=== PATIENT | female | born 1985 | race Caucasian/White ===

== ENCOUNTER 2020-10-12 00:11 | Inpatient (IN) | payer OTHER, SELFPAY ==
--- OUTSIDE RECORDS SUMMARY | 2020-10-12 00:14 | XMS REPORT | Continuity of Care Document ---
:1985 Author Organization [facility] t Address [address] [place] [address] Care Team Providers Name Role Phone Unavailable Unavailable Unavailable Problems This patient has no known problems. Allergies, Adverse Reactions, Alerts This patient has no known allergies or adverse reactions. Medications This patient has no known medications. Procedures This patient has no known procedures. Encounters Start End Encounter Admission Attending Care Care Encounter Source Date/Time Date/Time Type Type Clinicians Facility Department ID 2020-02-29 2020-02-29 Outpatient [facility] [id number] [facility] 2020-02-24 2020-02-24 Outpatient [facility] [id number] [facility] 2018-03-30 2018-03-30 [facility] [id number] [facility] 15:47[facility]00 15:47:00 [facility] 2018-03-29 2018-03-29 [facility] [id number] [facility] 13:30:00 13:30:00 [facility] Out[facility] Clinics Results This patient has no known results.
[2020-10-12 00:55] LABS: Urine Blood 2+ (Negative); Urine Glucose Negative (Negative); Urine Protein 2+ (Negative); Urine Specific Gravity 1.015 (1.005-1.030)
[2020-10-12 01:06] LABS: Urine Specific Gravity/Preg 1.015 (1.005-1.030)
[2020-10-12] MEDS ORDERED: IBUPROFEN 400 MG TAB ONE (01:09)
[2020-10-12 01:10] LABS: Absolute Lymphocytes (CBC) 0.2 K/uL (0.7-4.9); Basophils % 0.4 % (0-1.3); Hematocrit 36.7 % (36.0-45.0); Lymphocytes % 12.6 % (15.3-44.8); MPV 8.4 fL (7.6-11.3); RBC Red Blood Cell Count 3.86 M/uL (3.86-4.86)
[2020-10-12 01:14] LABS: Urine RBC TNTC /HPF (NONE SEEN)
[2020-10-12 01:15] LABS: Urine Bacteria 20-50 /HPF (<20); Urine Mucus 1+ /HPF (NONE SEEN)
[2020-10-12 01:20] LABS: Potassium 3.4 mmol/L (3.5-5.1)
[2020-10-12] MEDS ORDERED: NA CHLORIDE 0.9% 1,000 ML ONE ×3 (01:36→06:23)
[2020-10-12] MEDS ORDERED: NA CHLORIDE 0.9% 100 ML ONE (01:46)
[2020-10-12] MEDS ORDERED: PIPERACIL/TAZO 3.375 GM VIAL IV ONE (01:46)
--- NOTE | 2020-10-12 03:27 | ER ---
Nurse's Notes [facility] Name: Humberto Hardy Age: 34 yrs Sex: Female : 1985 Arrival Date: 10/12/2020 Time: 00:13 Bed 4 Private MD: Diagnosis: Left pyelonenphritis. Sepsis Presentation: 10/12 00:34 Chief complaint: Patient states: she thinks she has a UTI and she has a high fever it bb was 104.9 earlier she took some tylenol 2 hours ago, she is having back pain. Coronavirus screen: At this time, the client does not indicate any symptoms associated with coronavirus-19. Ebola Screen: No symptoms or risks identified at this time. Initial Sepsis Screen: Does the patient meet any 2 criteria? RR > 20 per min. Temp <36.0*C (96.8*F)) or > 38.3*C (100.9*F). HR > 90 bpm. Yes Does the patient have a suspected source of infection? Yes: Dysuria/Frequency/Urgency/UTI. Risk Assessment: Do you want to hurt yourself or someone else? Patient reports no desire to harm self or others. Onset of symptoms was October 10, 2020. 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 - Social history:: Smoking status: Patient denies any tobacco usage or history of. Screenin:41 Abuse screen: Denies threats or abuse. Nutritional screening: No deficits noted. em Tuberculosis screening: No symptoms or risk factors identified. Fall Risk None identified. Assessment: 00:50 General: Appears in no apparent distress. uncomfortable, Behavior is cooperative, em appropriate for age, anxious, Reports fever for 1-2 days, feeling ill for 1-2 days. Pain: Complains of pain in lumbar area Pain currently is 9 out of 10 on a pain scale. Neuro: Level of Consciousness is awake, alert, obeys commands, Oriented to person, place, time, situation. Cardiovascular: Capillary refill < 3 seconds Patient's skin is warm and dry. Respiratory: Airway is patent Respiratory effort is even, unlabored, Respiratory pattern is regular, symmetrical. GI: Abdomen is flat, Patient currently denies nausea, vomiting. : Reports burning with urination, urinary frequency. Derm: Skin is intact, is healthy with good turgor, Skin is pink, warm \T\ dry. Musculoskeletal: Capillary refill < 3 seconds, Range of motion: intact in all extremities. 01:41 Reassessment: Patient and/or family updated on plan of care and expected duration. Pain ea level reassessed. Patient is alert, oriented x 3, equal unlabored respirations, skin warm/dry/pink. 02:48 Reassessment: Patient appears in no apparent distress at this time. Patient and/or em family updated on plan of care and expected duration. Pain level reassessed. Patient is alert, oriented x 3, equal unlabored respirations, skin warm/dry/pink. 04:19 Reassessment: Patient appears in no apparent distress at this time. Patient and/or em family updated on plan of care and expected duration. Pain level reassessed. Patient is alert, oriented x 3, equal unlabored respirations, skin warm/dry/pink. Vital Signs: 00:34 BP 108 / 62; Pulse 119; Resp 28; Temp 102.6; Pulse Ox 99% ; Weight 58.97 kg (R); Height bb 5 ft. 0 in. (152.40 cm) (R); Pain 9/10; 01:41 BP 96 / 59; Pulse 110; Resp 16; Pulse Ox 100% on R/A; ea 01:42 Temp 100.8; bb 02:13 BP 94 / 54; Pulse 110; Resp 16; Temp 99.4; Pulse Ox 97% ; ea 03:18 BP 88 / 60; Pulse 107; Resp 20; Temp 99.9; Pulse Ox 99% on R/A; em 04:18 BP 92 / 66; Pulse 89; Resp 16; Pulse Ox 99% on R/A; em 00:34 Body Mass Index 25.39 (58.97 kg, 152.40 cm) bb ED Course: 00:13 Patient arrived in ED. cf2 00:37 Triage completed. bb 00:37 Arm band placed on Patient placed in an exam room, on a stretcher, on pulse oximetry. bb 00:40 Adama Christopher, RN is Primary Nurse. em 00:41 Patient has correct armband on for positive identification. Bed in low position. Pulse em ox on. NIBP on. 00:45 Urine collected: clean catch specimen, cloudy. bb 01:03 Nima Rodríguez MD is Attending Physician. pkl 01:12 Notified ED physician of a critical lab result(s). WBCs of 1.5 Dr Rodríguez notified. bb 01:39 CT Abd/Pelvis - IV Contrast Only In Process Unspecified. EDMS 03:26 Armando Agrawal DO is Hospitalizing Provider. pkl 06:12 No provider procedures requiring assistance completed. Patient admitted, IV remains in em place. Administered Medications: 01:00 Drug: Ibuprofen 800 mg Route: PO; em 01:43 Follow up: Response: No adverse reaction; Temperature is decreased bb 01:16 Drug: NS 0.9% 1000 ml Route: IV; Rate: 1000 ml; Site: right antecubital; em 03:13 Follow up: IV Status: Completed infusion; IV Intake: 1000ml em 01:39 Drug: Zosyn (piperacillin-tazobactam) 3.375 grams Route: IVPB; Infused Over: 60 mins; ea Site: right antecubital; 04:13 Follow up: Response: No adverse reaction; IV Status: Completed infusion; IV Intake: em 100ml 03:26 Drug: NS 0.9% (30 ml/kg) 30 ml/kg {Note: administered 1 L NS, will receive another L em per Dr. Rodríguez.} Route: IV; Rate: bolus; Site: right forearm; 04:17 Follow up: IV Status: Completed infusion; IV Intake: 1000ml em 04:17 Drug: vancoMYCIN 1 grams Route: IVPB; Infused Over: 2 hrs; Site: right forearm; em 06:12 Follow up: IV Status: Completed infusion; IV Intake: 250ml em Intake: 03:13 IV: 1000ml; Total: 1000ml. em 04:13 IV: 100ml; Total: 1100ml. em 04:17 IV: 1000ml; Total: 2100ml. em 06:12 IV: 250ml; Total: 2350ml. em Outcome: 03:27 Decision to Hospitalize by Provider. pkl 06:12 Patient left the ED. hiram 06:12 Admitted to Med/surg accompanied by tech, via wheelchair, room 232, with chart, Report em called to YVON Navarro 06:12 Condition: improved 06:12 Instructed on the need for admit, Demonstrated understanding of instructions. Signatures: Dispatcher [employer] Nima Lucio MD MD pkl Munoz, Edgar, RN RN Angelic Nguyen RN RN Victorina Sanford RN RN ea Frazier, Celesta cf2
--- NOTE | 2020-10-12 03:27 | EDPHYS ---
Physician Documentation [facility] Name: Humberto Hardy Age: 34 yrs Sex: Female : 1985 Arrival Date: 10/12/2020 Time: 00:13 Bed 4 Private MD: ED Physician Nima Rodríguez HPI: 10/12 03:10 This 34 yrs old Female presents to ER via Ambulatory with complaints of pkl Fever, UTI. 03:10 The patient complains of pain in the left flank. The pain does not radiate. Onset: The pkl symptoms/episode began/occurred yesterday, and became worse today. Associated signs and symptoms: Pertinent positives: fever, nausea, vomiting. The patient has experienced similar episodes in the past, a few times. 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 - Social history:: Smoking status: Patient denies any tobacco usage or history of. ROS: 03:10 Eyes: Negative for injury, pain, redness, and discharge, ENT: Negative for injury, pkl pain, and discharge, Neck: Negative for injury, pain, and swelling, Cardiovascular: Negative for chest pain, palpitations, and edema, Respiratory: Negative for shortness of breath, cough, wheezing, and pleuritic chest pain, Abdomen/GI: Negative for abdominal pain, nausea, vomiting, diarrhea, and constipation. 03:10 Back: Positive for flank pain, on the left. 03:10 : Negative for urinary symptoms. 03:10 MS/extremity: Negative for acute changes. 03:10 Skin: Negative for rash. 03:10 Neuro: Negative for altered mental status, loss of consciousness. Exam: 03:10 Head/Face: Normocephalic, atraumatic. Eyes: Pupils equal round and reactive to light, pkl extra-ocular motions intact. Lids and lashes normal. Conjunctiva and sclera are non-icteric and not injected. Cornea within normal limits. Periorbital areas with no swelling, redness, or edema. ENT: Nares patent. No nasal discharge, no septal abnormalities noted. Tympanic membranes are normal and external auditory canals are clear. Oropharynx with no redness, swelling, or masses, exudates, or evidence of obstruction, uvula midline. Mucous membranes moist. Neck: Trachea midline, no thyromegaly or masses palpated, and no cervical lymphadenopathy. Supple, full range of motion without nuchal rigidity, or vertebral point tenderness. No Meningismus. Chest/axilla: Normal chest wall appearance and motion. Nontender with no deformity. No lesions are appreciated. Cardiovascular: Regular rate and rhythm with a normal S1 and S2. No gallops, murmurs, or rubs. Normal PMI, no JVD. No pulse deficits. Respiratory: Lungs have equal breath sounds bilaterally, clear to auscultation and percussion. No rales, rhonchi or wheezes noted. No increased work of breathing, no retractions or nasal flaring. Abdomen/GI: Soft, non-tender, with normal bowel sounds. No distension or tympany. No guarding or rebound. No evidence of tenderness throughout. 03:10 Back: pain, that is moderate, of the left flank. 03:10 : Exam negative for acute changes. 03:10 Musculoskeletal/extremity: Exam is negative for acute changes. 03:10 Skin: Exam negative for rash. 03:10 Neuro: Orientation: is normal, Mentation: is normal, Cranial nerves: grossly normal, Motor: is normal. Vital Signs: 00:34 BP 108 / 62; Pulse 119; Resp 28; Temp 102.6; Pulse Ox 99% ; Weight 58.97 kg (R); Height bb 5 ft. 0 in. (152.40 cm) (R); Pain 9/10; 01:41 BP 96 / 59; Pulse 110; Resp 16; Pulse Ox 100% on R/A; ea 01:42 Temp 100.8; bb 02:13 BP 94 / 54; Pulse 110; Resp 16; Temp 99.4; Pulse Ox 97% ; ea 03:18 BP 88 / 60; Pulse 107; Resp 20; Temp 99.9; Pulse Ox 99% on R/A; em 04:18 BP 92 / 66; Pulse 89; Resp 16; Pulse Ox 99% on R/A; em 00:34 Body Mass Index 25.39 (58.97 kg, 152.40 cm) bb MDM: 01:03 Patient medically screened. pkl 03:24 Data reviewed: vital signs, nurses notes, lab test result(s), radiologic studies, CT pkl scan. ED course: Talked to Michael Becker ( JOURNEYMAN LEVEL ACOUSTIC ANALYST ) Admit to Dr. Agrawal. 10/12 00:29 Order name: Urine Microscopic Only kb 10/12 00:29 Order name: Urine Microscopic Only; Complete Time: 03:16 EDMS 10/12 00:40 Order name: CBC with Diff; Complete Time: 03:16 kb 10/12 00:40 Order name: Basic Metabolic Panel; Complete Time: 03:16 kb 10/12 00:54 Order name: Urine Dipstick-Ancillary; Complete Time: 01:04 EDMS 10/12 00:56 Order name: Urine --Ancillary (enter results) mw2 10/12 00:57 Order name: Urine --Ancillary; Complete Time: 03:16 EDMS 10/12 01:13 Order name: CT Abd/Pelvis - IV Contrast Only pkl 10/12 01:15 Order name: Blood Culture Adult (2) 10/12 01:15 Order name: Lactate; Complete Time: 03:16 10/12 01:16 Order name: Urine Culture EDMS 10/12 03:15 Order name: COVID-19 : Document "Date of Symptom Onset" if Symptomatic. em 10/12 04:26 Order name: Lactate em 10/12 05:05 Order name: Lactate; Complete Time: 05:46 EDMS 10/12 00:29 Order name: Urine Dipstick-Ancillary (obtain specimen); Complete Time: 01:00 kb 10/12 00:29 Order name: Urine Test (obtain specimen); Complete Time: 01:00 kb 10/12 00:40 Order name: IV Start; Complete Time: 01:00 kb Administered Medications: 01:00 Drug: Ibuprofen 800 mg Route: PO; em 01:43 Follow up: Response: No adverse reaction; Temperature is decreased bb 01:16 Drug: NS 0.9% 1000 ml Route: IV; Rate: 1000 ml; Site: right antecubital; em 03:13 Follow up: IV Status: Completed infusion; IV Intake: 1000ml em 01:39 Drug: Zosyn (piperacillin-tazobactam) 3.375 grams Route: IVPB; Infused Over: 60 mins; ea Site: right antecubital; 04:13 Follow up: Response: No adverse reaction; IV Status: Completed infusion; IV Intake: em 100ml 03:26 Drug: NS 0.9% (30 ml/kg) 30 ml/kg {Note: administered 1 L NS, will receive another L em per Dr. Rodríguez.} Route: IV; Rate: bolus; Site: right forearm; 04:17 Follow up: IV Status: Completed infusion; IV Intake: 1000ml em 04:17 Drug: vancoMYCIN 1 grams Route: IVPB; Infused Over: 2 hrs; Site: right forearm; em 06:12 Follow up: IV Status: Completed infusion; IV Intake: 250ml em Disposition Summary: 10/12/20 03:27 Hospitalization Ordered Hospitalization Status: Inpatient Admission pkl Provider: Armando Agrawal pkl Location: Telemetry/[facility] (Inpatient) pkl Condition: Stable pkl Problem: new pkl Symptoms: are unchanged pkl Bed/Room Type: Standard pkl Room Assignment: 232(10/12/20 05:42) Diagnosis - Left pyelonenphritis. Sepsis pkl Forms: - Medication Reconciliation Form pkl - SBAR form pkl Critical care time excluding procedures: 03:24 Critical care time: Bedside Care: 40 minutes. Total time: 40 minutes pkl Signatures: Dispatcher [employer] Rody Moore, IRENA ZIMMERMAN-Nima Mandujano MD MD pkAdama Long RN RN em Ballard, Brenda, RN RN bb Attema, Lee, FNP-C FNP-Joycelyn Rodriguez RN RN cg Antunez, Elena, RN RN ea Corrections: (The following items were deleted from the chart) 05:42 03:27 pkl cg
[2020-10-12] MEDS ORDERED: VANCOMYCIN 1 GM/VIAL ONE (03:56)
[2020-10-12] MEDS ORDERED: NA CHLORIDE 0.9% 250 ML ONE (03:57)
--- NOTE | 2020-10-12 04:10 | P.HP ---
Certification for Inpatient Patient admitted to: Inpatient With expected LOS: >2 Midnights Patient will require the following post-hospital care: None Practitioner: I am a practitioner with admitting privileges, knowledge of patient current condition, hospital course, and medical plan of care. Services: Services provided to patient in accordance with Admission requirements found in Title 42 Section 412.3 of the Code of Federal Regulations Patient History Date of Service: 10/12/20 Primary Care Provider: Clover cr Reason for admission: Sepsis, pyelonephritis, neutropenia History of Present Illness: 34-year-old female with no significant past medical history presents the emergency department for fever. Patient reports urinary frequency over the course of last few days with fever as high as 104 this evening. Patient also admits to some left flank pain. Patient was evaluated in the emergency department, labs were significant for white blood cell count 1.5 absolute neutrophils 1.3 potassium 3.4 chloride 111 CO2 18 lactic acid 3.4 urine too numerous to count white blood cells too numerous to count red blood cells 20-[address] demonstrates bladder wall thickening, left pyelonephritis. Patient initially mildly hypotensive with blood pressure systolic around 80s to 90s. Patient reports her blood pressure usually runs around 100 systolic, patient currently receiving 30 cc/kg bolus in the emergency department blood pressure systolic around 95 heart rate currently around 95 as well. Patient appears nontoxic. Patient with sepsis without severe sepsis or septic shock at this time will admit for further evaluation and management. Allergies No Known Allergies Allergy (Unverified 08/01/16 08:23) Home Medications: Vit,Calc78/Iron/Folic [Prenatabs FA Tablet] 1 tab PO DAILY 08/02/16 - Past Medical/Surgical History -: none -: NVD 2009 -: Spon AB & DC 2012 -: Lasik bilateral 2007 -: Abdominoplasty Psychosocial/ Personal History: Employed, lives with her and children - Family History Father -: Heart disease Notes: in 40s from heart attack - Social History Smoking Status: Never smoker Alcohol use: No CD- Drugs: No Caffeine use: No Place of Residence: Home Review of Systems General: Fever, Chills, Sweats, Weakness, Malaise Gastrointestinal: Abdominal Pain Genitourinary: Frequency Musculoskeletal: Back Pain Physical Examination - Physical Exam General: Alert, In no apparent distress, Oriented x3 HEENT: Atraumatic, PERRLA, Other (Mucous membranes dry), EOMI, Sclerae nonicteric Neck: Supple, 2+ carotid pulse no bruit, No LAD, Without JVD or thyroid abnormality Respiratory: Clear to auscultation bilaterally, Normal air movement Cardiovascular: Regular rate/rhythm, Normal S1 S2 Gastrointestinal: Normal bowel sounds, No tenderness Musculoskeletal: No tenderness Integumentary: No rashes Neurological: Normal speech, Normal strength at 5/5 x4 extr, Normal tone, Normal affect - Studies Laboratory Data (last 24 hrs) 10/12/20 00:58: Sodium 140, Potassium 3.4 L, BUN 11, Creatinine 0.83, Glucose 73 L 10/12/20 00:58: WBC 1.50 L*, Hgb 12.6, Hct 36.7, Plt Count 192 Assessment and Plan - Plan Assessment: Sepsis without severe sepsis or septic shock, neutropenia secondary to left pyelonephritis, UTI Plan: Sepsis without severe sepsis or septic shock, neutropenia secondary to left pyelonephritis, UTI: Patient currently receiving 30 cc/kg fluid bolus in the emergency department, blood pressure currently systolic 95. Patient reports baseline blood pressure is around 100 systolic. Patient given vancomycin/Zosyn in the emergency department will continue vancomycin/cefepime. Blood and urine cultures were obtained, will follow. Patient also noted to be neutropenic likely related to sepsis, will with monitor daily labs. Anticipate clinical improvement over the course of the next 48 to 72 hours DVT PPX: Lovenox Code status: Full Discharge Plan: Home Plan to discharge in: Greater than 2 days - Advance Directives Does patient have a Living Will: No Does patient have a Durable POA for Healthcare: No - Code Status/Comfort Care Code Status Assessed: Yes (Full code) Critical Care: No Time Spent Managing Pts Care (In Minutes): 55
--- NOTE | 2020-10-12 06:06 | P.PN ---
Subjective Date of Service: 10/12/20 Primary Care Provider: Annetta Maya NP Chief Complaint: Sepsis, pyelonephritis, neutropenia Subjective: Other (She is feeling better. She reports getting UTIs twice a year.) Physical Examination - Studies Laboratory Data (last 24 hrs) 10/12/20 00:58: Sodium 140, Potassium 3.4 L, BUN 11, Creatinine 0.83, Glucose 73 L 10/12/20 00:58: WBC 1.50 L*, Hgb 12.6, Hct 36.7, Plt Count 192 Assessment & Plan Discharge Plan: Home Plan to discharge in: 48 Hours Physician Review Additional Text: COVID: Negative CT scan: Will review findings Physical exam: General: Alert, In no apparent distress, Oriented x3 HEENT: Atraumatic, PERRLA, Other (Mucous membranes dry), EOMI, Sclerae nonicteric Neck: Supple, 2+ carotid pulse no bruit, No LAD, Without JVD or thyroid abnormality Respiratory: Clear to auscultation bilaterally, Normal air movement Cardiovascular: Regular rate/rhythm, Normal S1 S2 Gastrointestinal: Normal bowel sounds, No tenderness Musculoskeletal: No tenderness Integumentary: No rashes Neurological: Normal speech, Normal strength at 5/5 x4 extr, Normal tone, Normal affect Impression: Sepsis without severe sepsis or septic shock, neutropenia secondary to left pyelonephritis, UTI Plan: Sepsis without severe sepsis or septic shock, neutropenia secondary to left pyelonephritis, UTI: Patient reports improvement. Patient given IV fluid bolus in the ER. Continue with IV antibiotic therapy and IV fluids. Patient without severe sepsis or septic shock at this time. Will monitor lab closely. Patient with history of recurrent UTI. Await blood and urine culture results. Anticipate continued improvement. Likely discharge in the next 48 hours. DVT PPX: Lovenox Code status: Full Discharge Plan: Home Time Spent Managing Pts Care (In Minutes): 55
[2020-10-12] MEDS: NA CHLORIDE 0.9% 1,000 ML IV SCH ×2 (06:36→15:45)
[2020-10-12] MEDS ORDERED: ONDANSETRON 4 MG/2 ML VIAL IV PRN (06:36)
[2020-10-12] MEDS ORDERED: MORPHINE 2 MG/ML SYR IV PRN (06:36)
[2020-10-12 06:38] VITALS: BMI 26.9
[2020-10-12] MEDS ORDERED: VANCOMYCIN 500 MG in NA CHLORIDE 0.9% 100 ML IVPB ONE (06:47)
[2020-10-12] MEDS ORDERED: POTASSIUM 25 MEQ EFFERV TAB PO ONE (07:45)
[2020-10-12] MEDS ORDERED: CEFEPIME 1 GM/VIAL IV SCH (09:00)
[2020-10-12] MEDS: CEFEPIME/SWI 1gm 10 ML IVP SCH ×2 (09:06→20:17)
[2020-10-12] MEDS: ENOXAPARIN 40 MG/0.4 ML SQ SCH (09:07)
[2020-10-12] MEDS: FOLIC ACID 1 MG TABLET PO SCH (09:07)
[2020-10-12] MEDS: THIAMINE HCL 100 MG TABLET PO SCH (09:08)
--- NOTE | 2020-10-12 11:16 | RAD REPORT ---
EXAM DESCRIPTION: CT - Abdomen Pelvis W Contrast - 10/12/2020 6:16 am COMPARISON: None. CLINICAL HISTORY: [facility] MAIN ABD PAIN TECHNIQUE: CT of the abdomen and pelvis was acquired with IV contrast material. Coronal and sagitt al reconstructions were obtained. Automated exposure control was utilized on this examination as a dose lowering technique. FINDINGS: Lung bases: A 4 mm pulmonary nodule is noted in the right lower lobe. No routine follow-up is recommended given location and size. Liver: A small right hepatic cyst is noted. Gallbladder and biliary: Normal gallbladder. Unremarkable biliary tree. Pancreas: Normal. Spleen: Normal. Adrenal glands: Normal adrenal glands. Kidneys: 1.1 cm superior left renal cyst with small adjacent calcification. A small adjacent cortical hypoenhancing focus is noted. There is trace enhancement of the ureteral waters. Stomach and Small Bowel: The stomach and small bowel are normal. Urinary bladder: Severe bladder wall thickening is present with adjacent fat stranding. Uterus and Adnexa: Nabothian cysts are present. Colon and Appendix: The colon is unremarkable. No evidence of appendicitis. Retroperitoneum and lymph nodes: Normal. Vascular: Normal. Peritoneal cavity: Trace pelvic fluid is likely physiologic. No intraperitoneal free air. Musculoskeletal and soft tissues: Soft tissues are unremarkable. No aggressive bone lesions. No com pression fracture. IMPRESSION: Severe bladder wall thickening, ureteral wall enhancement, and a small focus of left adebayo al cortical hypoenhancement are consistent with ascending urinary tract infection and early left pyel onephritis. Electronically signed by: Brandon Ritchie MD 10/12/2020 1:57 AM CDT Due to temporary technical issues with the PACS/Fluency reporting system, reports are being signed by the in house radiologist without review as a courtesy to ensure prompt reporting. The interpreting r adiologist is fully responsible for the content of the report.
[2020-10-12] MEDS: ACETAMINOPHEN 500 MG TAB PO PRN ×2 (15:45→22:06)
[2020-10-12] MEDS: HYDROMORPHONE HCL 0.5 MG/0.5 ML INJ IV PRN (19:40)
[2020-10-12] MEDS ORDERED: VANCOMYCIN 1 GM in NA CHLORIDE 0.9% 500 ML IVPB SCH (21:00)
[2020-10-13] MEDS: NA CHLORIDE 0.9% 1,000 ML IV SCH ×4 (00:58→22:36)
[2020-10-13] MEDS: TRAMADOL HCL 50 MG TAB PO PRN (01:02)
[2020-10-13] MEDS ORDERED: VANCOMYCIN 1.25 GM in NA CHLORIDE 0.9% 250 ML IVPB SCH (02:00)
[2020-10-13] MEDS: HYDROCODONE/APAP 5/325 MG TAB PO PRN ×2 (05:11→18:19)
--- NOTE | 2020-10-13 06:03 | P.PN ---
Subjective Date of Service: 10/13/20 Primary Care Provider: Annetta Maya NP Chief Complaint: Sepsis, pyelonephritis, neutropenia Subjective: Improving, Doing well, Other (T-max 102 yesterday afternoon. Patient tolerating diet.) Physical Examination - Vital Signs Temperature: 99.8 F Blood Pressure: 111/67 Pulse: 79 Respirations: 15 Pulse Ox (%): 99 - Studies Microbiology Data (last 24 hrs): 10/12/20 01:25 Blood - Blood Blood Culture Gram Stain - Final 10/12/20 01:25 Blood - Blood Gram Stain - Final 10/12/20 01:30 Blood - Blood Blood Culture Gram Stain - Final 10/12/20 01:30 Blood - Blood Gram Stain - Final Assessment & Plan Discharge Plan: Home Plan to discharge in: 48 Hours Physician Review Additional Text: COVID: Negative CT scan: FINDINGS: Lung bases: A 4 mm pulmonary nodule is noted in the right lower lobe. No routine follow-up is recommended given location and size. Liver: A small right hepatic cyst is noted. Gallbladder and biliary: Normal gallbladder. Unremarkable biliary tree. Pancreas: Normal. Spleen: Normal. Adrenal glands: Normal adrenal glands. Kidneys: 1.1 cm superior left renal cyst with small adjacent calcification. A small adjacent cortical hypoenhancing focus is noted. There is trace enhancement of the ureteral waters. Stomach and Small Bowel: The stomach and small bowel are normal. Urinary bladder: Severe bladder wall thickening is present with adjacent fat stranding. Uterus and Adnexa: Nabothian cysts are present. Colon and Appendix: The colon is unremarkable. No evidence of appendicitis. Retroperitoneum and lymph nodes: Normal. Vascular: Normal. Peritoneal cavity: Trace pelvic fluid is likely physiologic. No intraperitoneal free air. Musculoskeletal and soft tissues: Soft tissues are unremarkable. No aggressive bone lesions. No compression fracture. IMPRESSION: Severe bladder wall thickening, ureteral wall enhancement, and a small focus of left renal cortical hypoenhancement are consistent with ascending urinary tract infection and early left pyelonephritis. Physical exam: General: Alert, In no apparent distress, Oriented x3 HEENT: Atraumatic, PERRLA, Other (Mucous membranes dry), EOMI, Sclerae nonicteric Neck: Supple, 2+ carotid pulse no bruit, No LAD, Without JVD or thyroid abnormality Respiratory: Clear to auscultation bilaterally, Normal air movement Cardiovascular: Regular rate/rhythm, Normal S1 S2 Gastrointestinal: Normal bowel sounds, No tenderness Musculoskeletal: No tenderness Integumentary: No rashes Neurological: Normal speech, Normal strength at 5/5 x4 extr, Normal tone, Normal affect Impression: Sepsis without severe sepsis or septic shock, neutropenia secondary to left pyelonephritis with a sending UTI and noted 1.1 cm superior left renal cyst with small adjacent calcification complicated with bacteremia, blood cultures show gram-negative rods Plan: Sepsis without severe sepsis or septic shock, neutropenia secondary to left pyelonephritis with a sending UTI and noted 1.1 cm superior left renal cyst with small adjacent calcification complicated with bacteremia, blood cultures show gram-negative rods: Patient continues to improve. T-max 102 yesterday. Patient with bacteremia. Await culture results. Continue with IV cefepime. Vancomycin discontinued. Continue aggressive IV fluids. Encourage oral intake. Continue to monitor lab closely. Encourage incentive spirometer. Encourage ambulation. Anticipate continued improvement. Case discussed in detail with patient and . Patient will require antibiotics for 2 weeks. Await culture results. Patient will require urology evaluation as an outpatient to further address. Anticipate likely discharge in the next 48 to 72 hours. DVT PPX: Lovenox Code status: Full Discharge Plan: Home at discharge Time Spent Managing Pts Care (In Minutes): 55
[2020-10-13 06:50] LABS: ALT/SGPT 42 U/L (12-78); AST/SGOT 39 U/L (15-37); Albumin 2.5 g/dL (3.4-5.0); Alkaline Phosphatase 56 U/L (45-117); BUN Blood Urea Nitrogen 10 mg/dL (7-18); Bicarbonate 20 mmol/L (21-32); Bilirubin Total 0.5 mg/dL (0.2-1.0); Glucose Level 96 mg/dL (74-106); Potassium 3.7 mmol/L (3.5-5.1); Protein, Total 5.7 g/dL (6.4-8.2); Sodium Level 137 mmol/L (136-145)
[2020-10-13 06:59] LABS: Absolute Lymphocytes (CBC) 0.7 K/uL (0.7-4.9); Basophils % 0.2 % (0-1.3); Hematocrit 29.4 % (36.0-45.0); Lymphocytes % 5.1 % (15.3-44.8); MPV 9.2 fL (7.6-11.3); RBC Red Blood Cell Count 3.12 M/uL (3.86-4.86)
[2020-10-13] MEDS: ENOXAPARIN 40 MG/0.4 ML SQ SCH (08:46)
[2020-10-13] MEDS: FOLIC ACID 1 MG TABLET PO SCH (08:47)
[2020-10-13] MEDS: CEFEPIME/SWI 1gm 10 ML IVP SCH ×2 (08:47→20:40)
[2020-10-13] MEDS: THIAMINE HCL 100 MG TABLET PO SCH (08:48)
[2020-10-13] MEDS: ACETAMINOPHEN 500 MG TAB PO PRN (08:57)
[2020-10-13] MEDS ORDERED: POTASSIUM CL SA 10 MEQ TAB PO ONE (09:00)
[2020-10-13 10:23] LABS: Blood Morphology Comment NOT SEEN (NOT SEEN); Platelet Estimate DECR
[2020-10-13] MEDS: HYDROMORPHONE HCL 0.5 MG/0.5 ML INJ IV PRN ×2 (10:36→23:07)
[2020-10-13 21:28] VITALS: O2SAT 96
[2020-10-14] MEDS: NA CHLORIDE 0.9% 1,000 ML IV SCH ×2 (02:46→06:36)
[2020-10-14] MEDS: TRAMADOL HCL 50 MG TAB PO PRN (02:54)
[2020-10-14 06:17] LABS: Absolute Lymphocytes (CBC) 0.9 K/uL (0.7-4.9); Basophils % 0.2 % (0-1.3); Hematocrit 27.9 % (36.0-45.0); Lymphocytes % 6.7 % (15.3-44.8); MPV 9.7 fL (7.6-11.3); RBC Red Blood Cell Count 2.94 M/uL (3.86-4.86)
[2020-10-14 06:35] LABS: ALT/SGPT 34 U/L (12-78); AST/SGOT 24 U/L (15-37); Albumin 2.6 g/dL (3.4-5.0); Alkaline Phosphatase 59 U/L (45-117); BUN Blood Urea Nitrogen 6 mg/dL (7-18); Bicarbonate 23 mmol/L (21-32); Bilirubin Total 0.3 mg/dL (0.2-1.0); Glucose Level 80 mg/dL (74-106); Magnesium 2.1 mg/dL (1.8-2.4); Potassium 4.2 mmol/L (3.5-5.1); Protein, Total 5.8 g/dL (6.4-8.2); Sodium Level 136 mmol/L (136-145)
[2020-10-14] MEDS ORDERED: IBUPROFEN 400 MG TAB PO PRN (07:35)
[2020-10-14] MEDS: CEFEPIME/SWI 1gm 10 ML IVP SCH (08:54)
[2020-10-14] MEDS: THIAMINE HCL 100 MG TABLET PO SCH (08:54)
[2020-10-14] MEDS: FOLIC ACID 1 MG TABLET PO SCH (08:54)
[2020-10-14] MEDS: ENOXAPARIN 40 MG/0.4 ML SQ SCH (08:55)
--- NOTE | 2020-10-14 11:20 | P.PN ---
Subjective Date of Service: 10/14/20 Primary Care Provider: Annetta Maya NP Chief Complaint: Sepsis, pyelonephritis, neutropenia Subjective: Improving, Doing well Physical Examination - Vital Signs Temperature: 99.0 F Blood Pressure: 122/77 Pulse: 75 Respirations: 16 Pulse Ox (%): 97 - Studies Microbiology Data (last 24 hrs): 10/12/20 01:25 Blood - Blood Blood Culture Gram Stain - Final 10/12/20 01:25 Blood - Blood Gram Stain - Final 10/12/20 01:30 Blood - Blood Blood Culture Gram Stain - Final 10/12/20 01:30 Blood - Blood Gram Stain - Final Assessment & Plan Discharge Plan: Home Plan to discharge in: 24 Hours Physician Review Additional Text: COVID: Negative CT scan: FINDINGS: Lung bases: A 4 mm pulmonary nodule is noted in the right lower lobe. No routine follow-up is recommended given location and size. Liver: A small right hepatic cyst is noted. Gallbladder and biliary: Normal gallbladder. Unremarkable biliary tree. Pancreas: Normal. Spleen: Normal. Adrenal glands: Normal adrenal glands. Kidneys: 1.1 cm superior left renal cyst with small adjacent calcification. A small adjacent cortical hypoenhancing focus is noted. There is trace enhancement of the ureteral waters. Stomach and Small Bowel: The stomach and small bowel are normal. Urinary bladder: Severe bladder wall thickening is present with adjacent fat stranding. Uterus and Adnexa: Nabothian cysts are present. Colon and Appendix: The colon is unremarkable. No evidence of appendicitis. Retroperitoneum and lymph nodes: Normal. Vascular: Normal. Peritoneal cavity: Trace pelvic fluid is likely physiologic. No intraperitoneal free air. Musculoskeletal and soft tissues: Soft tissues are unremarkable. No aggressive bone lesions. No compression fracture. IMPRESSION: Severe bladder wall thickening, ureteral wall enhancement, and a small focus of left renal cortical hypoenhancement are consistent with ascending urinary tract infection and early left pyelonephritis. Physical exam: General: Alert, In no apparent distress, Oriented x3 HEENT: Atraumatic, PERRLA, Other (Mucous membranes dry), EOMI, Sclerae nonicteric Neck: Supple, 2+ carotid pulse no bruit, No LAD, Without JVD or thyroid abnormality Respiratory: Clear to auscultation bilaterally, Normal air movement Cardiovascular: Regular rate/rhythm, Normal S1 S2 Gastrointestinal: Normal bowel sounds, No tenderness Musculoskeletal: No tenderness Integumentary: No rashes Neurological: Normal speech, Normal strength at 5/5 x4 extr, Normal tone, Normal affect Impression: Sepsis without severe sepsis or septic shock, neutropenia secondary to left pyelonephritis with a sending UTI and noted 1.1 cm superior left renal cyst with small adjacent calcification complicated with bacteremia, urine/blood cultures show gram-negative rods Plan: Sepsis without severe sepsis or septic shock, neutropenia secondary to left pyelonephritis with a sending UTI and noted 1.1 cm superior left renal cyst with small adjacent calcification complicated with bacteremia, blood cultures show gram-negative rods: Patient continues to improve. Had headache this morning. Fever improved. Will provide ibuprofen as needed for pain. Still waiting on blood and urine culture results. This will likely occur tomorrow. Continue with IV cefepime. Since she is taking good oral intake will discontinue IV fluids. Encourage incentive spirometer. Encourage ambulation. Can likely be discharged tomorrow once culture results have finalized. I will go over the plan of care with hospitalist team who will take over tomorrow. Await culture results. Patient will require urology evaluation as an outpatient to further address. DVT PPX: Lovenox Code status: Full Discharge Plan: Home at discharge Time Spent Managing Pts Care (In Minutes): 55
--- NOTE | 2020-10-14 16:21 | P.DS ---
Admission Date: 10/12/20 Discharge Date: 10/14/20 Primary Care Provider: Annetta Maya NP Disposition: ROUTINE DISCHARGE Discharge Condition: GOOD Reason for Admission: Sepsis, pyelonephritis, neutropenia Consultations: none Procedures: COVID: Negative CT scan: FINDINGS: Lung bases: A 4 mm pulmonary nodule is noted in the right lower lobe. No routine follow-up is recommended given location and size. Liver: A small right hepatic cyst is noted. Gallbladder and biliary: Normal gallbladder. Unremarkable biliary tree. Pancreas: Normal. Spleen: Normal. Adrenal glands: Normal adrenal glands. Kidneys: 1.1 cm superior left renal cyst with small adjacent calcification. A small adjacent cortical hypoenhancing focus is noted. There is trace enhancement of the ureteral waters. Stomach and Small Bowel: The stomach and small bowel are normal. Urinary bladder: Severe bladder wall thickening is present with adjacent fat stranding. Uterus and Adnexa: Nabothian cysts are present. Colon and Appendix: The colon is unremarkable. No evidence of appendicitis. Retroperitoneum and lymph nodes: Normal. Vascular: Normal. Peritoneal cavity: Trace pelvic fluid is likely physiologic. No intraperitoneal free air. Musculoskeletal and soft tissues: Soft tissues are unremarkable. No aggressive bone lesions. No compression fracture. IMPRESSION: Severe bladder wall thickening, ureteral wall enhancement, and a small focus of left renal cortical hypoenhancement are consistent with ascending urinary tract infection and early left pyelonephritis. Medical problem list: Sepsis without severe sepsis or septic shock, neutropenia secondary to left pyelonephritis with a sending UTI and noted 1.1 cm superior left renal cyst with small adjacent calcification complicated with bacteremia, urine/blood cultures show gram-negative rods Brief History of Present Illness: 34-year-old female with no significant past medical history presents the emergency department for fever. Patient reports urinary frequency over the course of last few days with fever as high as 104 this evening. Patient also admits to some left flank pain. Patient was evaluated in the emergency department, labs were significant for white blood cell count 1.5 absolute neut rophils 1.3 potassium 3.4 chloride 111 CO2 18 lactic acid 3.4 urine too numerous to count white blood cells too numerous to count red blood cells 20-[address] demonstrates bladder wall thickening, left pyelonephritis. Patient was admitted for pyelonephritis. Hospital Course: Patient presented with sepsis secondary to left pyelonephritis. Patient with history of UTIs in the past. Patient did not have any severe sepsis or septic shock. CT scan revealed 1.1 cm superior left renal cyst with small adjacent calcification. Blood and urine cultures were positive. Gram-negative rods were identified. The patient was given IV fluids and IV antibiotic treatment. Her condition improved. At discharge she is without significant abdominal pain, nausea or vomiting. Patient tolerating her diet. Patient was to wait 1 more day for culture results. She preferred to go home. This was discussed with her PCPD. ELADIA Maya. At discharge the patient will continue with Cipro 500 mg 1 pill twice daily for 12 more days. She will be provided lactobacillus 1 pill 3 times a day and multivitamin with iron daily. She is to follow-up with her PCP within 1 week to to follow-up this hospitalization. PCP will follow up on culture results. Recommend to establish care with urology as an outpatient to further address. This can be done within the next 2 weeks. UTI prevention provided. Education on pyelonephritis also provided. Recommend and encourage incentive spirometer along with oral intake. Vital Signs/Physical Exam: Temp Pulse Resp BP Pulse Ox 98.7 F 56 16 119/74 97 10/14/20 12:00 10/14/20 12:00 10/14/20 12:00 10/14/20 12:00 10/14/20 12:00 General: Alert, In no apparent distress, Oriented x3, Cooperative HEENT: Atraumatic Neck: Supple Respiratory: Clear to auscultation bilaterally, Normal air movement Cardiovascular: Normal pulses, Regular rate/rhythm Gastrointestinal: Normal bowel sounds, No tenderness, No masses, No rebound, No guarding Musculoskeletal: No erythema, No tenderness, No warmth Integumentary: No tenderness/swelling, No erythema, No warmth, No cyanosis Neurological: Normal speech, Normal strength at 5/5 x4 extr, Normal tone, Normal affect Laboratory Data at Discharge: WBC 12.70 K/uL (4.3-10.9) H 10/14/20 05:38 Hgb 9.6 g/dL (12.0-15.0) L 10/14/20 05:38 Hct 27.9 % (36.0-45.0) L 10/14/20 05:38 Plt Count 137 K/uL (152-406) L 10/14/20 05:38 Sodium 136 mmol/L (136-145) 10/14/20 05:38 Potassium 4.2 mmol/L (3.5-5.1) 10/14/20 05:38 BUN 6 mg/dL (7-18) L 10/14/20 05:38 Creatinine 0.56 mg/dL (0.55-1.3) 10/14/20 05:38 Glucose 80 mg/dL (74-106) 10/14/20 05:38 Magnesium 2.1 mg/dL (1.8-2.4) 10/14/20 05:38 Total Bilirubin 0.3 mg/dL (0.2-1.0) 10/14/20 05:38 AST 24 U/L (15-37) 10/14/20 05:38 ALT 34 U/L (12-78) 10/14/20 05:38 Alkaline Phosphatase 59 U/L (45-117) 10/14/20 05:38 Home Medications: Ciprofloxacin HCl [Cipro 500 MG Tablet] 500 mg PO BID #22 tab 10/14/20 Lactobacillus Acidophilus [Acidophilus Lactobacilli] 1 each PO TID #30 capsule 10/14/20 Multivitamin with Iron [Multivitamins with Iron] 1 each PO DAILY #90 tablet 10/14/20 New Medications: Lactobacillus Acidophilus [Acidophilus Lactobacilli] 1 each PO TID #30 capsule Ciprofloxacin HCl [Cipro 500 MG Tablet] 500 mg PO BID #22 tab Multivitamin with Iron [Multivitamins with Iron] 1 each PO DAILY #90 tablet Physician Discharge Instructions: Patient presented with sepsis secondary to left pyelonephritis. Patient with history of UTIs in the past. Patient did not have any severe sepsis or septic shock. CT scan revealed 1.1 cm superior left renal cyst with small adjacent calcification. Blood and urine cultures were positive. Gram-negative rods were identified. The patient was given IV fluids and IV antibiotic treatment. Her condition improved. At discharge she is without significant abdominal pain, nausea or vomiting. Patient tolerating her diet. Patient was to wait 1 more day for culture results. She preferred to go home. This was discussed with her PCPD. ELADIA Maya. At discharge the patient will continue with Cipro 500 mg 1 pill twice daily for 12 more days. She will be provided lactobacillus 1 pill 3 times a day and multivitamin with iron daily. She is to follow-up with her PCP within 1 week to to follow-up this hospitalization. PCP will follow up on culture results. Recommend to establish care with urology as an outpatient to further address. This can be done within the next 2 weeks. UTI prevention provided. Education on pyelonephritis also provided. Recommend and encourage incentive spirometer along with oral intake. Diet: AHA Activity: Ad aime Followup: Misty Maya, REPRODUCTION SPECIALIST [Primary Care Provider] - Time spent managing pt's care (in minutes): 55
[2020-10-14 16:37] VITALS: BP 123/77; TEMP 98.3
== END 2020-10-14 17:50 | disposition home or self-care (01) | DRG 872 ==
LOC: ER 00:11 → ERHOLD 04:01 → 2ND 05:51
PROVIDERS: ADMIT Family Medicine; ATTEND Family Medicine
DX: A41.9 Sepsis, unspecified organism (principal); N12 Tubulo-interstitial nephritis, not specified as acute or chronic; N28.1 Cyst of kidney, acquired; D70.9 Neutropenia, unspecified; Z79.899 Other long term (current) drug therapy; Z20.822 Contact with and (suspected) exposure to COVID-19
CPT/HCPCS: 36415; 74177; 80048; 80053; 80202; 81003; 81015; 81025; 83605; 83735; 84132; 84439; 84443; 85025; 87040; 87077; 87086; 87088; 87186; 87205; 94010; 96361; 96365; 96366; 96367; 96368; 99285; J0692; J1170; J1650; J2270; J2405; J2543; J3370; J7030; J7050; Q9967; U0003